=== PATIENT | female | born 1935 | race American Indian/Alaskan Native ===

== ENCOUNTER 2018-04-07 08:02 | Day surgery (SDC) | payer OTHER ==
[2018-04-07] MEDS ORDERED: Lactated Ringer's 500 ML IV ONE (10:27)
[2018-04-07 10:31] VITALS: TEMP 97.1
[2018-04-07] MEDS ORDERED: Propofol 10 mg/ml Inj (20 ML) ONE (11:04)
[2018-04-07 11:48] VITALS: BP 111/59; PULSE 76; RESP 18; O2SAT 100
== END 2018-04-07 11:49 | disposition home or self-care (01) ==
LOC: H.ENDO 08:02
PROVIDERS: ATTEND Internal Medicine Gastroenterology
DX: K21.9 Gastro-esophageal reflux disease without esophagitis (principal); E11.9 Type 2 diabetes mellitus without complications; E78.5 Hyperlipidemia, unspecified; I10 Essential (primary) hypertension; R12 Heartburn; K44.9 Diaphragmatic hernia without obstruction or gangrene; K22.2 Esophageal obstruction; K31.89 Other diseases of stomach and duodenum; K29.50 Unspecified chronic gastritis without bleeding
CPT/HCPCS: 43239; 88305; J2001; J2704; J7120